=== PATIENT | male | born 1955 | race Native Hawaiian/Other Pacific Islander ===

== ENCOUNTER 2017-06-06 11:26 | Outpatient (CLI) | payer OTHER ==
[2017-06-06 12:01] LABS: PLATELET COUNT 400 K/uL (142-355)
[2017-06-06 12:55] LABS: POTASSIUM 3.5 mmol/L (3.6-5.2); SODIUM 136 mmol/L (136-145)
== END 2017-06-06 19:39 | disposition home or self-care (01) ==
LOC: LABW 11:26
PROVIDERS: Nurse Practitioner Family
DX: M06.4 Inflammatory polyarthropathy (principal); E11.9 Type 2 diabetes mellitus without complications; I10 Essential (primary) hypertension; G70.00 Myasthenia gravis without (acute) exacerbation; E53.8 Deficiency of other specified B group vitamins
CPT/HCPCS: 36415; 80053; 81000; 82043; 82570; 83036; 85027; 85651; 86140

== ENCOUNTER 2017-06-25 13:04 | Outpatient (CLI) | payer OTHER ==
[2017-06-25 13:44] LABS: POTASSIUM 3.4 mmol/L (3.6-5.2)
[2017-06-25 13:48] LABS: PLATELET COUNT 537 K/uL (142-355)
== END 2017-06-25 21:12 | disposition home or self-care (01) ==
LOC: LABW 13:04
DX: R79.82 Elevated C-reactive protein (CRP) (principal); Z79.899 Other long term (current) drug therapy; Z51.81 Encounter for therapeutic drug level monitoring; R53.83 Other fatigue
CPT/HCPCS: 36415; 80053; 82784; 82785; 85027; 85651; 86140

== ENCOUNTER 2017-06-26 13:20 | Outpatient (CLI) | payer OTHER | END 2017-06-26 23:04 | disposition home or self-care (01) | LOC: LABW 13:20 | DX: E87.6 Hypokalemia (principal) | CPT/HCPCS: 36415; 84132 ==

== ENCOUNTER 2017-06-28 09:52 | Outpatient (CLI) | payer OTHER | END 2017-06-28 19:20 | disposition home or self-care (01) | LOC: LAB 09:52 | DX: E87.6 Hypokalemia (principal) | CPT/HCPCS: 36415; 84132 ==